=== PATIENT | male | born 1975 | race Caucasian/White ===

== ENCOUNTER 2019-03-17 12:46 | Inpatient (IN) | payer BC, OTHER ==
[~2019-03-17] VITALS: Ht 170.2 cm; Wt 84.4 kg
[2019-03-17] VITALS (13 sets, daily range): BP systolic 95–134; BP diastolic 44–83
--- NOTE | 2019-03-17 12:48 | NUR ---
JOSEPHINE RA 89 FROM HOME, "WAS ON THE FRONT PORCH GIVING SELF A RESPIRATORY TREATMENT THAT HE INHALES". Hx OF ASTHMA, RESPIRATORY DISTRESS/ARREST IN THE BACK OF AMBULANCE WHILE EN ROUTE. TO ER BED 8, HOOKED TO MONITOR, PATIENT UNRESPONSIVE. DR MORGAN, RT AND TECH AT BEDSIDE FOR INTUBATION.
--- NOTE | 2019-03-17 12:49 | NUR ---
VERBAL ORDER FROM DOCTOR MORGAN OF ETOMIDATE 20MG IVP AND SUCCINYLCHOLINE 120MG IVP, CARRIED OUT.
--- NOTE | 2019-03-17 12:50 | NUR ---
INTUBATION BY DR MORGAN, +COLOR CHANGE, BILATERAL CHEST RISE AND FALL, BILATERAL LUNG SOUNDS.
[2019-03-17] MEDS ORDERED: Magnesium 1GM/D5W 100ML PREMIX 200 ML IV ONE ×2 (12:53→13:10)
[2019-03-17] MEDS ORDERED: IV NS 0.9% 1,000 ML IV ONE (12:53)
[2019-03-17] MEDS ORDERED: ALBUTEROL FS 2.5 MG/3 ML VIAL.NEB ONE ×2 (12:56→12:59)
[2019-03-17] MEDS ORDERED: IPRATROPIUM NEB FS 0.5 MG/2.5 ML AMPUL.NEB ONE (12:59)
[2019-03-17] MEDS ORDERED: PROPOFOL 10MG/ML 50ML 50 ML IV PRN (13:00)
[2019-03-17] MEDS ORDERED: ALBUTEROL FS 2.5 MG/3 ML VIAL.NEB CONTNEB ONE (13:00)
[2019-03-17] MEDS ORDERED: IPRATROPIUM NEB FS 0.5 MG/2.5 ML AMPUL.NEB NEB ONE (13:00)
[2019-03-17] MEDS ORDERED: methylPREDNISolone SOD SUCC 125 MG/2ML VIAL IV ONE (13:00)
--- NOTE | 2019-03-17 13:00 | NUR ---
RT PT CAME VIA EMS FOR ASTHMA EXACERBATION INTUBATED WITH 7.[address] MORGAN SECURED AT 25CM @TEETH POSITIVE COLOR CHANGE ON EC02 AND EQUAL BILATERAL BREATH SOUNDS. PLACED ON [facility] VENT WITH FOLLOWING SETTING OF AC 18 500 50% +5 PLACED ON A CONTINUOUS BREATHING TX BAG AND MASK AT HOB ALARMS ON AND AUDILE WILLL CONT TO MONITOR Addendum: 03/17/19 at 1344 by MATILDA HINOJOSA RT Amended: Links added.
[2019-03-17] MEDS ORDERED: ALBU2.5V38 PO (13:03)
[2019-03-17] MEDS ORDERED: FLUT10.62 PO (13:03)
[2019-03-17 13:07] LABS: BASOPHILS # (AUTO) 0.1 /CMM (0.0-0.2); BASOPHILS % (AUTO) 0.6 % (0.0-2.0); EOSINOPHILS % (AUTO) 5.3 % (0.0-6.0); HEMATOCRIT 45 % (39-51); HEMOGLOBIN 14.7 g/dL (13.5-17.5); LYMPHOCYTES # (AUTO) 6.7 /CMM (0.8-4.8); LYMPHOCYTES % (AUTO) 43.9 % (20.0-44.0); MEAN CORPUSCULAR HGB CONC 33 g/dl (31.0-36.0); MEAN CORPUSCULAR VOLUME 92 fL (80-96); MONOCYTES # (AUTO) 1.3 /CMM (0.1-1.30); MONOCYTES % (AUTO) 8.6 % (2.0-12.0); NEUTROPHILS # (AUTO) 6.4 /CMM (1.8-8.9); NEUTROPHILS % (AUTO) 41.6 % (43.0-81.0); PLATELET COUNT (AUTO) 299 /CMM (150-450); RED BLOOD CELL COUNT(AUTO) 4.93 MIL/uL (4.5-6.0); WHITE BLOOD COUNT (AUTO) 15.3 K/uL (4.3-11.0)
--- NOTE | 2019-03-17 13:13 | NUR ---
SALES MARKET LEADER AT BEDSIDE FOR CXR POST INTUBATION
[2019-03-17 13:14] LABS: CALCIUM, SERUM 8.4 mg/dL (8.5-10.1); CARBON DIOXIDE 24 mmol/L (21-32); CHLORIDE 102 mmol/L (98-107); CREATININE 1.5 mg/dL (0.6-1.3); GLUCOSE 274 mg/dL (74-106); SODIUM SERUM 141 mmol/L (136-145); UREA NITROGEN, BLOOD 13 mg/dL (7-18)
[2019-03-17 13:27] LABS: ALANINE AMINOTRANSFERASE 33 U/L (12-78); ALBUMIN 3.6 g/dL (3.4-5.0); ALKALINE PHOSPHATASE 53 U/L (46-116); ASPARTATE AMINOTRANSFERASE 25 U/L (15-37); B-TYPE NATRIURETIC PEPTIDE 14 PG/ML (0-125); BILIRUBIN,TOTAL 0.2 mg/dL (0.2-1.0); TOTAL PROTEIN, SERUM 6.8 g/dL (6.4-8.2)
--- NOTE | 2019-03-17 13:31 | NUR ---
CALLED FOR TELE BED.
[2019-03-17] MEDS ORDERED: PROPOFOL 100 ML ONE (13:50)
[2019-03-17 14:01] LABS: ABG BASE EXCESS -4.1 mmol/L; ABG PCO2 49.9 mmHg (35.0-45.0); ABG PH 7.282 (7.350-7.450); ABG PO2 351.3 mmHg (75.0-100.0); AaDO2 311.8 mmHg; COHb 0.3 % (0.5-1.5); MetHb 0.5 % (0.0-1.5); O2Hb 98.2 % (94.0-97.0); SITE, ABG Left Radial; VENT MODE, BG AC18 500 50% +5
--- NOTE | 2019-03-17 14:16 | NUR ---
REPORT GIVEN TO GARRET GOULD OF ICU
--- NOTE | 2019-03-17 14:21 | NUR ---
GOT ICU BED AGAIN 252
[2019-03-17] MEDS ORDERED: FENTANYL PF 100MCG/2ML AMPUL ONE (14:28)
[2019-03-17] MEDS ORDERED: ACETAMINOPHEN 650 MG/SUPP.RECT RC PRN (14:30)
[2019-03-17] MEDS ORDERED: FENTANYL PF 100MCG/2ML AMPUL IV ONE (14:30)
[2019-03-17] MEDS ORDERED: ONDANSETRON HCL/PF 4 MG/2 ML VIAL IVP PRN (14:30)
[2019-03-17 15:34] LABS: APPEARANCE,URINE Clear (CLEAR); BILIRUBIN,URINE Negative (NEGATIVE); BLOOD, URINE Large Ery/uL (NEGATIVE); COLOR,URINE Yellow (YELLOW); KETONES,URINE Negative (NEGATIVE); LEUKOCYTE ESTERASE ,URINE Negative (NEGATIVE); NITRITE, URINE Negative (NEGATIVE); PROTEIN,URINE 100 mg/dl (NEGATIVE); UGLUCOSE 250 MG/DL mg/dL (NEGATIVE); UROBILINOGEN,URINE 0.2 EU/dL (0.2)
[2019-03-17 15:45] LABS: BACTERIA,URINE Rare /HPF (None Seen); HYALINE CASTS, URINE Few /LPF (None Seen); WBC,URINE 0-2 /HPF (0-3)
--- NOTE | 2019-03-17 16:00 | NUR ---
RN INITIAL NOTES RECEIVED PT FROM ER VIA [facility]. PT INTUBATED, ON VENT. NO RESPIRATORY DISTRESS NOTED. NO SOB NOTED. NO SIGNS OF PAIN. IV LINES IN PLACE. ON DIPRIVAN AT 100MCG/KG/MIN. FC IN PLACE. NO HEMATURIA NOTED. BODY ASSESSMENT DONE. SKIN INTACT. SKY, STAFFING OPERATIONS MANAGER AWARE OF ADMISSION. AWAITING FOR ORDERS. WILL CLOSELY MONITOR
[2019-03-17] MEDS: PROPOFOL 100 ML IV PRN ×4 (16:08→22:01)
[2019-03-17] MEDS: LEVOFLOXACIN 750 MG /D5W 150ML 750 MG in PREMIX 1 EA IV SCH (16:19)
[2019-03-17] MEDS: IV D5/0.45 NACL 1,000 ML IV PRN (16:19)
[2019-03-17] MEDS: methylPREDNISolone SOD SUCC 125 MG/2ML VIAL IV SCH (16:19)
[2019-03-17] MEDS: ENOXAPARIN SODIUM 40 MG/0.4 ML DISP.SYRIN SQ SCH ×2 (16:31→20:17)
[2019-03-17] MEDS: IPRATROPIUM NEB FS 0.5 MG/2.5 ML AMPUL.NEB NEB SCH ×3 (16:43→23:33)
[2019-03-17] MEDS: ALBUTEROL FS 2.5 MG/3 ML VIAL.NEB NEB SCH ×3 (16:43→23:30)
[2019-03-17] MEDS ORDERED: SUCCINYLCHOLINE CHLORIDE 20 MG/ML VIAL IV ONE (16:44)
[2019-03-17] MEDS ORDERED: ETOMIDATE 2 MG/ML VIAL IV ONE (16:44)
[2019-03-17 16:53] LABS: ABG BASE EXCESS -3.8 mmol/L; ABG OXYGEN SATURATION 98.7 % (92.0-98.5); ABG PCO2 42.6 mmHg (35.0-45.0); ABG PH 7.331 (7.350-7.450); ABG PO2 225.7 mmHg (75.0-100.0); AaDO2 82.9 mmHg; COHb 0.3 % (0.5-1.5); MetHb 0.7 % (0.0-1.5); O2Hb 97.7 % (94.0-97.0); SITE, ABG Right Radial; VENT MODE, BG AC 18 550 50% +5
--- NOTE | 2019-03-17 16:54 | NUR ---
RT Pt received orally intubated on mechanical ventilation with noted settings. HHN tx tolerated well with no adverse reactions. Vent is plugged into red outlet. No respiratory distress noted. Addendum: 03/17/19 at 1741 by SEGUNDO AQUINO RT Amended: Links added.
--- NOTE | 2019-03-17 17:39 | NUR ---
RT Pt received orally intubated on mechanical ventilation with noted settings. HHN tx given inline with no adverse reactions. Vent is plugged into red outlet. No respiratory distress noted at this time.
--- NOTE | 2019-03-17 18:22 | NUR ---
RN CLOSING NOTES NO SIGNIFICANT CHANGE NOTED. PT REMAINS INTUBATED AND SEDATED. NO RESPIRATORY DISTRESS NOTED. NO SOB NOTED. NO SIGNS OF PAIN NOTED. KEPT CLEAN AND DRY. REPOSITIONED Q2. BLE ELEVATED. WILL ENDORSE FOR CONTINUITY OF CARE.
--- NOTE | 2019-03-17 19:53 | NUR ---
MARKET RESEARCH CONSULTANT. INITIAL ASSESSMENT. RECEIVED THE PT REST ON THE BED. ORALLY INTUBATED, SEDATED WITH DIPRIVAN. ETT 7.5,LIP 25CM,AC 18,TV 450,FIO2 50%,PEEP 5. SAT 98%. NO ACUTE DISTRESS NOTED. CLOTH FOLDER HAND SHOWING S TACH. ADI SOFT WRIST RESTRAINT CHECKED AND RELEASED. NO INJURY OR REDNESS NOTED. HOB ELEVATED. RT NARE NGT INTACT. CLAMPED. FC PATENT. URINE DRAINING. IV RT AND LT FM 18G. DIPRIVAN 100MCG/KG/MIN.IVF D51/2NS 50ML/H/ WILL CONTINUE TO MONITOR VITALS.
--- NOTE | 2019-03-17 19:58 | NUR ---
RT Pt received orally intubated on mechanical ventilation with noted settings. HHN tx tolerated well with no adverse reactions. Vent is plugged into red outlet. No respiratory distress noted. WILL CONTINUE TO MONITOR. Addendum: 03/17/19 at 1957 by ELISSA MCNEIL RT Amended: Links added.
[2019-03-17] MEDS: MORPHINE SULFATE INJ 2 MG/ML DISP.SYRIN IV PRN (22:02)
[2019-03-18] VITALS (19 sets, daily range): BP systolic 111–159; BP diastolic 52–93
--- NOTE | 2019-03-18 | NUR ---
CLAIM INSPECTOR. RT ADVANCED ETT, S/P X RAY DONE.
[2019-03-18] MEDS: PROPOFOL 100 ML IV PRN ×6 (00:01→09:04)
[2019-03-18] MEDS: ALBUTEROL FS 2.5 MG/3 ML VIAL.NEB NEB SCH ×4 (03:24→15:08)
--- NOTE | 2019-03-18 03:24 | NUR ---
CHANNEL INSTALLER. AM CARE, ORAL CARE, BED BATH GIVEN. LINEN CHANGED. REMAINING SAME VENT SETTING TOLERATED WELL. SAT 97%. NO ACUTE DISTRESS NOTED. WASHER AND CRUSHER TENDER SHOWING S TACH. IV DIPRIVAN 100MCG/KG/MIN,IVF D5 1/2 NS 50ML/H. HOB ELEVATED. NGT CLAMPED. PT IS NPO. FC PATENT URINE DRAINING. TEMPERATURE 38.5. TYLENOL SUPP INSERTED. ADI SOFT WRIST RESTRAINT CHECKED AND RELEASED, NO INJURY OR REDNESS NOTED. TURN AND REPOSITION Q2H. WILL CONTINUE TO MONITOR VITALS.
[2019-03-18] MEDS: IPRATROPIUM NEB FS 0.5 MG/2.5 ML AMPUL.NEB NEB SCH ×4 (03:25→15:08)
[2019-03-18 04:23] LABS: BASOPHILS % (AUTO) 0.1 % (0.0-2.0); HEMATOCRIT 40 % (39-51); HEMOGLOBIN 13.6 g/dL (13.5-17.5); MEAN CORPUSCULAR HGB CONC 34 g/dl (31.0-36.0); MEAN CORPUSCULAR VOLUME 89 fL (80-96); MONOCYTES # (AUTO) 0.6 /CMM (0.1-1.30); MONOCYTES % (AUTO) 3.9 % (2.0-12.0); NEUTROPHILS # (AUTO) 12.6 /CMM (1.8-8.9); PLATELET COUNT (AUTO) 243 /CMM (150-450); RED BLOOD CELL COUNT(AUTO) 4.47 MIL/uL (4.5-6.0); WHITE BLOOD COUNT (AUTO) 14.1 K/uL (4.3-11.0)
[2019-03-18 04:45] LABS: ALBUMIN 3.2 g/dL (3.4-5.0); BILIRUBIN,TOTAL 0.2 mg/dL (0.2-1.0); CALCIUM, SERUM 8.5 mg/dL (8.5-10.1); CREATININE 1.1 mg/dL (0.6-1.3); MAGNESIUM 1.9 mg/dL (1.8-2.4); PHOSPHORUS 2.7 mg/dL (2.5-4.9); POTASSIUM 4.5 mmol/L (3.5-5.1); TOTAL PROTEIN, SERUM 6.3 g/dL (6.4-8.2)
[2019-03-18 05:11] LABS: THYROID STIMULATING HORMONE 1.303 uIU/mL (0.358-3.74)
[2019-03-18] MEDS: MORPHINE SULFATE INJ 2 MG/ML DISP.SYRIN IV PRN (06:36)
--- NOTE | 2019-03-18 07:20 | NUR ---
RN INITIAL NOTES RECEIVED PT INTUBATED, SEDATED. ON VENT. NO RESPIRATORY DISTRESS NOTED. NO SOB NOTED. NO SIGNS OF PAIN NOTED. ON DIPRIVAN AT 100MCG/KG/MIN. WILL TITRATE ACCORDINGLY. NGT CLAMPED. FC IN PLACE. REPOSITIONED. BLE ELEVATED. WILL CLOSELY MONITOR
[2019-03-18 08:18] LABS: ABG BASE EXCESS 0.4 mmol/L; ABG OXYGEN SATURATION 95.4 % (92.0-98.5); ABG PCO2 40.7 mmHg (35.0-45.0); ABG PH 7.408 (7.350-7.450); ABG PO2 77.6 mmHg (75.0-100.0); AaDO2 88.5 mmHg; MetHb 0.7 % (0.0-1.5); O2Hb 94.7 % (94.0-97.0); SITE, ABG Right Radial; VENT MODE, BG AC 18 550 +5 30%
[2019-03-18] MEDS: methylPREDNISolone SOD SUCC 125 MG/2ML VIAL IV SCH ×3 (08:29→16:18)
[2019-03-18] MEDS ORDERED: PANTOPRAZOLE 40 MG VIAL IV SCH (10:30)
--- NOTE | 2019-03-18 10:45 | NUR ---
RN NOTES 1000 PT SEEN AND EXAMINED BY DR MORTON. PT AWAKE, A/O. ABLE TO FOLLOW COMMANDS. PT ON DIPRIVAN AT 10MCG/KG/MIN. AWARE OF ABG RESULT. MD VERBALLY ORDERED TO TURN OFF DIPRIVAN AND PLACE PT ON CPAP. WILL CLSOELY MONITOR. FOR POSSIBLE EXTUBATION 1040 PT EXTUBATED. PLACED ON 02 VIA NC. HOB ELEVATED. ORAL CARE PROVIDED. PT A/OX4. AT BEDSIDE. WILL CLOSELY MONITOR.
[2019-03-18] MEDS: IV D5/0.45 NACL 1,000 ML IV PRN (12:33)
[2019-03-18] MEDS ORDERED: ATROPINE SULFATE 1 MG/10 ML DISP.SYRIN ONE (13:56)
[2019-03-18] MEDS: LEVOFLOXACIN 750 MG /D5W 150ML 750 MG in PREMIX 1 EA IV SCH (16:18)
--- NOTE | 2019-03-18 18:41 | NUR ---
RN NOTES PT LEFT AMA. PT A/OX4. NO RESPIRATORY DISTRESS. NO SOB NOTED. DENIES ANY PAIN. AMBULATORY. EXPLAINED RISK OF GOING AGAINST MEDICAL ADVICE, VERBALIZED UNDERSTANDING. DR. MOJICA NOTIFIED. IV LINES REMOVED. PT WHEELED TO LOBBY WITH . LEFT IN STABLE CONDITION.
== END 2019-03-18 18:39 | disposition left against medical advice (07) | DRG 208 ==
LOC: ER 12:47 → ICU 14:02
PROVIDERS: ADMIT Nurse Practitioner Acute Care; ATTEND Family Medicine
PROC: 0BH17EZ Insertion of Endotracheal Airway into Trachea, Via Natural or Artificial Opening (ICD-10-PCS; principal; 2019-03-17)
PROC: 5A1945Z Respiratory Ventilation, 24-96 Consecutive Hours (ICD-10-PCS; principal; 2019-03-17)
DX: J96.01 Acute respiratory failure with hypoxia (principal); N17.0 Acute kidney failure with tubular necrosis; J45.902 Unspecified asthma with status asthmaticus; J96.02 Acute respiratory failure with hypercapnia; F17.210 Nicotine dependence, cigarettes, uncomplicated; D72.829 Elevated white blood cell count, unspecified; J44.9 Chronic obstructive pulmonary disease, unspecified; R73.9 Hyperglycemia, unspecified
CPT/HCPCS: 31720; 36415; 36600; 71045-TC; 80048-TC; 80053-TC; 80061-TC; 80076-TC; 80305; 81000-TC; 82803-TC; 83735-TC; 83880; 84100-TC; 84443-TC; 84484-TC; 85025-TC; 87081-TC; 94003-TC; 94799-TC; A4216; C9113; G0378; J0330; J0461; J1650; J1956; J2270; J2930; J3010; J3475; J3490